=== PATIENT | female | born 1945 | race Caucasian/White ===

== ENCOUNTER 2016-07-20 17:14 | Inpatient (IN) | payer OTHER ==
[2016-07-20] MEDS ORDERED: ALBUTEROL 3 ML DEYVIAL ONE (17:29)
[2016-07-20] MEDS ORDERED: IPRATROPIUM/ALBUTEROL 3 ML DEYVIAL IH ONE (17:33)
[2016-07-20] MEDS ORDERED: ALBUTEROL 3 ML DEYVIAL IH ONE (17:56)
[2016-07-20] MEDS ORDERED: methylPREDNISolone SOD SUCC 125 MG/2 ML VIAL IVP ONE (18:03)
[2016-07-20 18:16] LABS: % IMMATURE GRANULYOCYTES 1.3 % (0.0-1.1); ABSOLUTE IMMATURE GRANULOCYTES 0.22 10^3/uL (0.00-0.10); ADD DIFF? NO; ADD MORPH? NO; ADD SCAN? NO; ATYPICAL LYMPHOCYTE FLAG 10 (0-99); FRAGMENT RBC FLAG 0 (0-99); HEMATOCRIT 49.3 % (38.0-47.0); HEMOGLOBIN 16.7 g/dL (12.6-16.3); LEFT SHIFT FLG 10 (0-99); LIPEMIA HEMOLYSIS FLAG 90 (0-99); MEAN CELL HEMOGLOBIN 28.4 pg (27.9-34.1); MEAN CELL HEMOGLOBIN CONCENTR. 33.9 g/dL (32.4-36.7); MEAN PLATELET VOLUME 8.5 fL (8.7-11.7); PLATELET CLUMPS FLAG 0 (0-99); PLATELET COUNT 456 10^3/uL (150-400); RED BLOOD CELL COUNT 5.87 10^6/uL (4.18-5.33); RED CELL DISTRIBUTION WIDTH 13.2 % (11.5-15.2)
[2016-07-20 18:27] LABS: ANION GAP 14 mEq/L (8-16); CALCIUM 9.1 mg/dL (8.5-10.4); CARBON DIOXIDE 26 mEq/l (22-31); CHLORIDE 96 mEq/L (97-110); CREATININE 0.8 mg/dL (0.6-1.0); GLOMERULAR FILTRATION RATE > 60; GLUCOSE 137 mg/dL (70-100); POTASSIUM 4.1 mEq/L (3.5-5.2); SODIUM 136 mEq/L (134-144)
--- NOTE | 2016-07-20 18:42 | UCPHY ---
H & P Patient Type: Established Chief Complaint Nursing Narrative: 1 month with URI s/s in pt with asthma. is now having cough, congestion and trouble breathing. Time Seen by Provider: 07/20/16 17:33 HPI/ROS: Over the past month this patient reports having URI symptoms with asthma exacerbation. She explains that she was treated by Dr. Schulz, her primary care physician with Zithromax for bronchitis 1 month ago and she has had varying degrees of dyspnea since then. She is currently on 60 mg of prednisone , day 5 in using her albuterol MDI with a spacer at home very regularly. Despite compliance with this regimen she has worsening dyspnea today that prompted her visit. She reports moderate to severe dyspnea. She also has some fatigue. She has a feeling of chest congestion associated with this as well. ROS: No high fevers or chills. No other constitutional symptoms except some fatigue. HEENT: No significant nasal congestion or sore throat. No headache. Pulmonary: No pleuritic pain. Cardiovascular She reports no chest pain except for an ache in her chest wall that she attributes to muscle pain from frequent coughing.. She has chronic lower extremity swelling with no significant worsening recently. No significant leg pain.. No heart palpitations. She does have significant dyspnea on exertion since her symptoms started. She denies any abdominal pain or other GI symptoms. No nausea vomiting. No diaphoresis. 10 point ROS is otherwise negative. Source: Patient Exam Limitations: No limitations - Personal History Current Tetanus Diphtheria and Acellular Pertussis (TDAP): Yes - Medical/Surgical History PMH: Asthma Chronic leg edema on hydrochlorothiazide Hx Asthma: Yes Hx Chronic Respiratory Disease: Yes Hx Diabetes: No Hx Cardiac Disease: No Hx Renal Disease: No Hx Cirrhosis: No Hx Alcoholism: No Hx HIV/AIDS: No Hx Splenectomy or Spleen Trauma: No Other PMH: asthma - Family History Significant Family History: No pertinent family hx - Social History Smoking Status: Never smoked Alcohol Use: Rarely Drug Use: None - Physical Exam Exam: Vital signs are notable for respiratory rate greater than 20 and hypoxia on room air to the mid 80s. General Appearance: Pleasant 71-year-old female with moderate dyspnea. Alert, no distress. Eyes: Pupils equal and round no pallor or injection. ENT, Mouth: Mucous membranes moist. Respiratory: Bilateral pronounced expiratory wheeze with prolonged expiratory phase. Cardiovascular: Regular rate and rhythm. No murmur gallop rub. No JVD or peripheral edema is appreciated. Gastrointestinal: Abdomen is soft and nontender, no masses, bowel sounds normal. Neurological: Alert with no focal deficits. Skin: Warm and dry, no rashes. Musculoskeletal: Neck is supple nontender. Extremities are symmetrical, full range of motion. Psychiatric: Mood and affect are normal. DIFFERENTIAL DIAGNOSIS: After history and physical exam differential diagnosis was considered for persistent asthma exacerbation, CHF, pneumonia, PE, Constitutional: Initial Vital Signs Temperature (C) 36.7 C 07/20/16 17:19 Heart Rate 95 07/20/16 17:19 Respiratory Rate 20 07/20/16 17:19 Blood Pressure 168/83 H 07/20/16 17:19 O2 Sat (%) 88 L 07/20/16 17:19 O2 Delivery Mode Room Air O2 (L/minute) 3 Allergies/Adverse Reactions: No Known Allergies Allergy (Unverified 07/20/16 17:23) Home Medications: Medication Instructions Recorded Albuterol Hfa Anes Only [Proair 2 puffs IH Q4 PRN #1 mdi 10/20/11 Hfa Icu (*)] Albuterol Sulfate [Proventil Hfa] 6.7 gm IH 10/20/11 Albuterol [Proventil Neb] 3 ml IH Q4 PRN #25 deyvial 10/20/11 Dm/P-Ephed/Acetaminoph/Doxylam 296 ml PO 10/20/11 [Nyquil D Cold & Flu Liquid] Fluticasone/Salmeterol [Advair 1 each IH 10/20/11 250-50 Diskus] Triamterene [Dyrenium (RX)] 50 mg PO 10/20/11 Singulair 4 mg (*) 07/20/16 predniSONE 07/20/16 Medical Decision Making - Diagnostics EKG Interpretation: 12 lead EKG performed at 6:46 p.m. reveals sinus rhythm at 86 Intervals: Normal throughout [place]: Normal throughout ST segments: Normal throughout Overall assessment normal EKG Imaging: Chest x-ray: Findings consistent with airway disease, prominent interstitial markings in upper lobes right more than left. Question infiltrate versus fluid overload. ED Course/Re-evaluation: IV, nasal cannula O2-3 L brings her oxygen sat up into the 90s. Had IVs established. She is treated with Solu-Medrol 125 IV. DuoNeb followed by albuterol neb. She has persistent hypoxia to the mid 80s despite nebs. Her workup was expanded to include chest x-ray, EKG and labs. After workup, the patient has significant elevation of white count question effective prednisone versus primary infectious etiology. Given the interstitial markings in her upper lobes cannot rule out early pneumonia. For this reason will cover her with antibiotics. Her rapid flu is negative. Her BNP is normal and clinically she does not have JVD or other findings for acute CHF. Her EKG is normal. Appreciate evidence of acute coronary syndrome. Given her ongoing hypoxia and dyspnea despite 5 days of appropriate treatment for asthma she warrants admission for further treatment. She is positive for SIRS criteria with elevated pulse and respiratory rate, elevated white blood cell count and may have early pneumonia as potential source for sepsis. She has a normal lactate. She does not have septic shock currently. At the time of transfer patient still has ongoing wheezing but her work of breathing is diminished. She appears comfortable but remains hypoxic. On nasal cannula O2 she is satting in the 90s. I spoke with the hospitalist arch cushion skiving machine operator, Dr. Carson at [facility] who accepts the patient for transfer - Data Points Laboratory Results: Laboratory Results 07/20/16 18:09 07/20/16 18:09 07/20/16 07/20/16 07/20/16 19:18 19:00 18:10 WBC RBC Hgb Hct MCV MCH MCHC RDW Plt Count MPV Neut % (Auto) Lymph % (Auto) [place] % (Auto) Eos % (Auto) Baso % (Auto) Nucleat RBC Rel Count Absolute Neuts (auto) Absolute Lymphs (auto) Absolute Monos (auto) Absolute Eos (auto) Absolute Basos (auto) Absolute Nucleated RBC Immature Gran % Immature Gran # VBG Lactic Acid 1.3 mmol/L mmol/L (0.7-2.1) Sodium Potassium Chloride Carbon Dioxide Anion Gap BUN Creatinine Estimated GFR Glucose Calcium NT-Pro-B Natriuret Pep 125 pg/mL pg/mL (0-125) Influenza Typ A,B (DFA) NEGATIVE FOR FLU (NEGATIVE) 07/20/16 07/20/16 18:09 18:09 WBC 16.74 10^3/uL H 10^3/uL (3.80-9.50) RBC 5.87 10^6/uL H 10^6/uL (4.18-5.33) Hgb 16.7 g/dL H g/dL (12.6-16.3) Hct 49.3 % H % (38.0-47.0) MCV 84.0 fL fL (81.5-99.8) MCH 28.4 pg pg (27.9-34.1) MCHC 33.9 g/dL g/dL (32.4-36.7) RDW 13.2 % % (11.5-15.2) Plt Count 456 10^3/uL H 10^3/uL (150-400) MPV 8.5 fL L fL (8.7-11.7) Neut % (Auto) 86.1 % H % (39.3-74.2) Lymph % (Auto) 8.5 % L % (15.0-45.0) [place] % (Auto) 3.8 % L % (4.5-13.0) Eos % (Auto) 0.0 % L % (0.6-7.6) Baso % (Auto) 0.3 % % (0.3-1.7) Nucleat RBC Rel Count 0.0 % % (0.0-0.2) Absolute Neuts (auto) 14.40 10^3/uL H 10^3/uL (1.70-6.50) Absolute Lymphs (auto) 1.43 10^3/uL 10^3/uL (1.00-3.00) Absolute Monos (auto) 0.64 10^3/uL 10^3/uL (0.30-0.80) Absolute Eos (auto) 0.00 10^3/uL L 10^3/uL (0.03-0.40) Absolute Basos (auto) 0.05 10^3/uL 10^3/uL (0.02-0.10) Absolute Nucleated RBC 0.00 10^3/uL 10^3/uL (0-0.01) Immature Gran % 1.3 % H % (0.0-1.1) Immature Gran # 0.22 10^3/uL H 10^3/uL (0.00-0.10) VBG Lactic Acid Sodium 136 mEq/L mEq/L (134-144) Potassium 4.1 mEq/L mEq/L (3.5-5.2) Chloride 96 mEq/L L mEq/L (97-110) Carbon Dioxide 26 mEq/l mEq/l (22-31) Anion Gap 14 mEq/L mEq/L (8-16) BUN 24 mg/dL H mg/dL (7-23) Creatinine 0.8 mg/dL mg/dL (0.6-1.0) Estimated GFR > 60 Glucose 137 mg/dL H mg/dL (70-100) Calcium 9.1 mg/dL mg/dL (8.5-10.4) NT-Pro-B Natriuret Pep Influenza Typ A,B (DFA) Medications Given: Discontinued Medications Albuterol (Proventil Neb) 3 ml IH EDNOW ONE Stop: 07/20/16 17:57 Last Admin: 07/20/16 18:15 Dose: 3 ml Albuterol/Ipratropium (Duoneb) 3 ml IH EDNOW ONE Stop: 07/20/16 17:34 Last Admin: 07/20/16 17:34 Dose: 3 ml Azithromycin (Zithromax) 500 mg PO EDNOW ONE PRN Reason: Protocol Stop: 07/20/16 19:07 Last Admin: 07/20/16 19:25 Dose: 500 mg Ceftriaxone Sodium 1 gm/ (Sodium Chloride) 100 mls @ 200 mls/hr IV EDNOW ONE PRN Reason: Protocol Stop: 07/20/16 19:34 Last Admin: 07/20/16 19:25 Dose: 100 mls Methylprednisolone Sodium Succinate (Solu-Medrol) 125 mg IVP EDNOW ONE Stop: 07/20/16 18:04 Last Admin: 07/20/16 18:16 Dose: 125 mg Departure - Departure Disposition: [facility] Acute Clinical Impression: Hypoxia, Asthma exacerbation, Community acquired pneumonia Dyspnea Qualifiers: Dyspnea type: shortness of breath Qualified Code(s): R06.02 - Shortness of breath Condition: Serious - PQRS PQRS Measurement: 134: Depression screening and followup, PRIME MD-PHQ2 (12 years and older) Over the last 2 weeks, how often have you been bothered by any of the following problems? 1. Feeling down, depressed, or hopeless? 2. Little interest or pleasure in doing things? Patient answered no to both 1 and 2 130: Documentation of medications. Reviewed all patient medications, doses, route and frequency. 226: Do you smoke? [No.] 47: 65 and older: Advanced care planning. Patient designates surrogate decision maker as spouse. 51: 18 years old and older with diagnosis of COPD, spirometry performance. NA 52: 18 years old and older with COPD and symptoms of COPD or FEV1<60% predicted prescribed a B Agonist. NA
--- NOTE | 2016-07-20 18:48 | CPEKG ---
Heart Rate: 86 RR Interval: 698 P-R Interval: 124 QRSD Interval: 100 QT Interval: 376 QTC Interval: 450 P [place]: 55 QRS [place]: 62 T Wave [place]: 11 EKG Severity - NORMAL ECG - EKG Impression: SINUS RHYTHM Electronically Signed By: Jamel Mera 20-Jul-2016 20:58:32
[2016-07-20] MEDS ORDERED: AZITHROMYCIN 250 MG TAB PO ONE (19:06)
--- NOTE | 2016-07-20 22:38 | PDGENHP ---
History and Physical - Chief Complaint Shortness of breath and cough - History of Present Illness this is a 71-year-old female with history of asthma presented to [facility] this afternoon with persistent wheezing, cough, And severe congestion. patient 1st came down with which she describes as "A bug" 4 weeks ago at which time she had some fevers and chills. She was treated with a Z-Alcides as well as a Medrol Dosepak. The patient states that she never report really got better after this 1st course of antibiotics and medication. Patient back to see her primary care provider last week at which time she was started on 60 mg of prednisone per day. She is also been using albuterol and Advair. Patient has continued to wheeze and cough. She states her cough is nonproductive and has trouble getting any mucus up. She denies having any fevers or chills over the past 3 weeks. She does have some chest discomfort when she coughs. History Information - Allergies/Home Medication List Allergies/Adverse Reactions: No Known Allergies Allergy (Unverified 07/20/16 17:23) Home Medications: Fluticasone/Salmeterol [Advair 250-50 Diskus] 1 each IH BID 10/20/11 [Last Taken 07/20/16] Montelukast Sodium [Montelukast Sodium] 10 mg PO DAILY 07/20/16 [Last Taken ] PREDNISONE [PREDNISONE] 60 mg PO DAILY 07/20/16 [Last Taken 07/20/16] Triamterene/Hctz 37.5/25 [Dyazide 37.5/25 (*)] 1 each PO DAILY 07/20/16 [Last Taken 07/20/16] I have personally reviewed and updated: family history, medical history, social history, surgical history Past Medical History: Asthma, chronic lower extremity swelling - Surgical History Reports: cholecystectomy, hysterectomy ( for fibroids) Additional surgical history: bilateral lumpectomy - Family History Positive for: cancer ( mother) - Social History Smoking Status: Never smoked Alcohol Use: Rarely Drug Use: None Review of Systems ROS: 10pt was reviewed & negative except for what was stated in HPI & below Physical Exam Temp Pulse Resp BP Pulse Ox 36.7 C 80 20 142/80 H 95 07/20/16 17:19 07/20/16 20:13 07/20/16 20:13 07/20/16 20:13 07/20/16 20:13 O2 (L/minute) 3 Selected Entries 07/20/16 17:19 O2 Sat (%) 88 L O2 Delivery Room Air Mode Constitutional: no apparent distress, appears nourished, not in pain Eyes: PERRL, anicteric sclera, EOMI Ears, Nose, Mouth, Throat: moist mucous membranes, hearing normal, ears appear normal, no oral mucosal ulcers Cardiovascular: regular rate and rhythym, no murmur, rub, or gallop, No JVD, No edema Respiratory: no respiratory distress, reduced air movement, expiratory wheeze, No inspiratory crackles, No dullness to percussion Gastrointestinal: normoactive bowel sounds, No tenderness, No ascites, No guarding, No rebound Genitourinary: no bladder fullness, no bladder tenderness Skin: warm, normal color, no rashes or abrasions, no fluctuance, no induration, No mottled Musculoskeletal: full muscle strength, no muscle tenderness, normal joint ROM, no joint effusions Neurologic: AAOx3, CN II-XII Intact, No facial droop Psychiatric: interacting appropriately, not anxious, not encephalopathic, thought process linear Lab Data & Imaging Review 07/20/16 18:09 07/20/16 18:09 WBC 16.74 10^3/uL (3.80-9.50) H 07/20/16 18:09 RBC 5.87 10^6/uL (4.18-5.33) H 07/20/16 18:09 Hgb 16.7 g/dL (12.6-16.3) H 07/20/16 18:09 Hct 49.3 % (38.0-47.0) H 07/20/16 18:09 MCV 84.0 fL (81.5-99.8) 07/20/16 18:09 MCH 28.4 pg (27.9-34.1) 07/20/16 18:09 MCHC 33.9 g/dL (32.4-36.7) 07/20/16 18:09 RDW 13.2 % (11.5-15.2) 07/20/16 18:09 Plt Count 456 10^3/uL (150-400) H 07/20/16 18:09 MPV 8.5 fL (8.7-11.7) L 07/20/16 18:09 Neut % (Auto) 86.1 % (39.3-74.2) H 07/20/16 18:09 Lymph % (Auto) 8.5 % (15.0-45.0) L 07/20/16 18:09 [place] % (Auto) 3.8 % (4.5-13.0) L 07/20/16 18:09 Eos % (Auto) 0.0 % (0.6-7.6) L 07/20/16 18:09 Baso % (Auto) 0.3 % (0.3-1.7) 07/20/16 18:09 Nucleat RBC Rel Count 0.0 % (0.0-0.2) 07/20/16 18:09 Absolute Neuts (auto) 14.40 10^3/uL (1.70-6.50) H 07/20/16 18:09 Absolute Lymphs (auto) 1.43 10^3/uL (1.00-3.00) 07/20/16 18:09 Absolute Monos (auto) 0.64 10^3/uL (0.30-0.80) 07/20/16 18:09 Absolute Eos (auto) 0.00 10^3/uL (0.03-0.40) L 07/20/16 18:09 Absolute Basos (auto) 0.05 10^3/uL (0.02-0.10) 07/20/16 18:09 Absolute Nucleated RBC 0.00 10^3/uL (0-0.01) 07/20/16 18:09 Immature Gran % 1.3 % (0.0-1.1) H 07/20/16 18:09 Immature Gran # 0.22 10^3/uL (0.00-0.10) H 07/20/16 18:09 VBG Lactic Acid 1.3 mmol/L (0.7-2.1) 07/20/16 19:00 Sodium 136 mEq/L (134-144) 07/20/16 18:09 Potassium 4.1 mEq/L (3.5-5.2) 07/20/16 18:09 Chloride 96 mEq/L (97-110) L 07/20/16 18:09 Carbon Dioxide 26 mEq/l (22-31) 07/20/16 18:09 Anion Gap 14 mEq/L (8-16) 07/20/16 18:09 BUN 24 mg/dL (7-23) H 07/20/16 18:09 Creatinine 0.8 mg/dL (0.6-1.0) 07/20/16 18:09 Estimated GFR > 60 07/20/16 18:09 Glucose 137 mg/dL (70-100) H 07/20/16 18:09 Calcium 9.1 mg/dL (8.5-10.4) 07/20/16 18:09 NT-Pro-B Natriuret Pep 125 pg/mL (0-125) 07/20/16 18:10 Influenza Typ A,B (DFA) NEGATIVE FOR FLU (NEGATIVE) 07/20/16 19:18 Visualized and Interpreted Chest x-ray results: Yes Chest X-Ray results: other ( hyperinflation) Visualized and Interpreted EKG results: Yes EKG Interpretation: Positive for: normal sinsus rhythm ( rate 86 beats per minute). Negative for: Q waves, ST elevation, ST depression Assessment & Plan Assessment: This 71-year-old female with history of asthma presenting with # acute respiratory failure likely due to asthma exacerbation in the setting of mucous plugging and severe congestion # asthma exacerbation # leukocytosis most likely due to stress demargination in the setting of prednisone use versus acute infection # polycythemia likely secondary in the setting of hypoxemia # mild pre renal azotemia with a chest x-ray that shows possible overload per Radiology read however her BNP is normal plan: - Place in observation - continue IV Solu-Medrol - IV levofloxacin - DuoNeb treatments - trial of Mucinex - will ask RT to provide a flutter valve
[2016-07-20] MEDS ORDERED: ACETAMINOPHEN 325 MG TAB PO PRN (22:44)
[2016-07-20] MEDS ORDERED: ONDANSETRON 4 MG/2 ML VIAL IVP PRN (22:44)
[2016-07-20] MEDS ORDERED: 1/2 NS 1,000 ML IV SCH (23:00)
[2016-07-20] MEDS: ZOLPIDEM TARTRATE 5 MG TAB PO PRN (23:32)
[2016-07-20] MEDS: methylPREDNISolone SOD SUCC 125 MG/2 ML VIAL IVP SCH (23:42)
[2016-07-20] MEDS: guaiFENesin 600 MG TAB.ER PO SCH (23:42)
[2016-07-21] MEDS: IPRATROPIUM/ALBUTEROL 3 ML DEYVIAL IH PRN ×2 (00:01→09:00)
[2016-07-21 05:11] LABS: % IMMATURE GRANULYOCYTES 1.5 % (0.0-1.1); ABSOLUTE IMMATURE GRANULOCYTES 0.28 10^3/uL (0.00-0.10); ADD DIFF? NO; ADD MORPH? NO; ADD SCAN? NO; ATYPICAL LYMPHOCYTE FLAG 10 (0-99); FRAGMENT RBC FLAG 0 (0-99); HEMATOCRIT 45.7 % (38.0-47.0); LEFT SHIFT FLG 10 (0-99); LIPEMIA HEMOLYSIS FLAG 80 (0-99); MEAN CELL HEMOGLOBIN 29.1 pg (27.9-34.1); MEAN CELL HEMOGLOBIN CONCENTR. 32.8 g/dL (32.4-36.7); MEAN CELL VOLUME 88.7 fL (81.5-99.8); MEAN PLATELET VOLUME 8.9 fL (8.7-11.7); PLATELET CLUMPS FLAG 0 (0-99); PLATELET COUNT 397 10^3/uL (150-400); RED BLOOD CELL COUNT 5.15 10^6/uL (4.18-5.33); RED CELL DISTRIBUTION WIDTH 13.6 % (11.5-15.2)
[2016-07-21 05:26] LABS: ANION GAP 9 mEq/L (8-16); CALCIUM 8.4 mg/dL (8.5-10.4); CARBON DIOXIDE 27 mEq/l (22-31); CHLORIDE 102 mEq/L (97-110); CREATININE 0.8 mg/dL (0.6-1.0); GLOMERULAR FILTRATION RATE > 60; GLUCOSE 193 mg/dL (70-100); POTASSIUM 4.8 mEq/L (3.5-5.2); SODIUM 138 mEq/L (134-144)
[2016-07-21] MEDS: methylPREDNISolone SOD SUCC 125 MG/2 ML VIAL IVP SCH ×3 (05:27→17:41)
[2016-07-21] MEDS: guaiFENesin 600 MG TAB.ER PO SCH ×2 (08:00→20:42)
[2016-07-21] MEDS: MONTELUKAST SODIUM 10 MG TAB PO SCH (08:01)
[2016-07-21] MEDS ORDERED: ALBUTEROL 3 ML DEYVIAL IH PRN (09:08)
[2016-07-21] MEDS ORDERED: ACETYLCYSTEINE 10% 30 ML VIAL IH PRN (09:09)
[2016-07-21] MEDS ORDERED: FLUTICASONE/SALMETER 250/50MCG DISKUS IH SCH (09:15)
--- NOTE | 2016-07-21 09:52 | HOSPPROG ---
Hospitalist Progress Note Assessment/Plan: * Asthma exacerbation - still very tight/wheezy -steroids, nebs, abx * Acute respiratory failure - O2 * Leukocytosis -suspect due to steroids * HTN -restart dyazide Subjective: Still SOB. Can't get mucus up. Objective: Vital Signs Temp Pulse Resp BP Pulse Ox 36.4 C 97 18 145/72 H 92 07/21/16 08:00 07/21/16 09:03 07/21/16 09:03 07/21/16 08:00 07/21/16 09:03 Laboratory Results 07/21/16 03:56 07/21/16 03:56 07/20/16 07/21/16 07/22/16 05:59 05:59 05:59 Intake Total 1300 Balance 1300 - Physical Exam Constitutional: no apparent distress, appears nourished, not in pain Cardiovascular: regular rate and rhythym, no murmur, rub, or gallop Respiratory: reduced air movement, expiratory wheeze, respiratory distress, rhonchi Gastrointestinal: normoactive bowel sounds, soft, non-tender abdomen, no palpable masses Skin: no rashes or abrasions, no fluctuance, no induration Neurologic: AAOx3, sensation intact bilaterally Psychiatric: interacting appropriately, not anxious, not encephalopathic, thought process linear ICD10 Worksheet Patient Problems: Problems Problem Status Onset Asthma exacerbation Acute Community acquired pneumonia Acute Dyspnea Acute Hypoxia Acute
[2016-07-21] MEDS: IPRATROPIUM/ALBUTEROL 3 ML DEYVIAL IH SCH ×3 (11:59→20:52)
[2016-07-21] MEDS: ENOXAPARIN 40 MG/0.4 ML SYR SC SCH (20:42)
[2016-07-21] MEDS: FLUTICASONE/SALMETER 250/50MCG DISKUS IH SCH (21:23)
[2016-07-22] MEDS: methylPREDNISolone SOD SUCC 125 MG/2 ML VIAL IVP SCH ×5 (01:03→23:34)
[2016-07-22 05:34] LABS: % IMMATURE GRANULYOCYTES 1.2 % (0.0-1.1); ABSOLUTE IMMATURE GRANULOCYTES 0.28 10^3/uL (0.00-0.10); ADD DIFF? NO; ADD MORPH? NO; ADD SCAN? NO; ATYPICAL LYMPHOCYTE FLAG 40 (0-99); FRAGMENT RBC FLAG 0 (0-99); HEMATOCRIT 43.1 % (38.0-47.0); HEMOGLOBIN 13.9 g/dL (12.6-16.3); LEFT SHIFT FLG 0 (0-99); LIPEMIA HEMOLYSIS FLAG 80 (0-99); MEAN CELL HEMOGLOBIN 28.4 pg (27.9-34.1); MEAN CELL HEMOGLOBIN CONCENTR. 32.3 g/dL (32.4-36.7); MEAN CELL VOLUME 88.1 fL (81.5-99.8); MEAN PLATELET VOLUME 8.8 fL (8.7-11.7); PLATELET CLUMPS FLAG 0 (0-99); PLATELET COUNT 363 10^3/uL (150-400); RED BLOOD CELL COUNT 4.89 10^6/uL (4.18-5.33); RED CELL DISTRIBUTION WIDTH 13.8 % (11.5-15.2)
[2016-07-22] MEDS: IPRATROPIUM/ALBUTEROL 3 ML DEYVIAL IH SCH ×3 (05:44→16:05)
[2016-07-22] MEDS: guaiFENesin 600 MG TAB.ER PO SCH ×2 (09:04→21:05)
[2016-07-22] MEDS: TRIAMTERENE/HCTZ 37.5/25 1 EACH CAP PO SCH (09:04)
[2016-07-22] MEDS: MONTELUKAST SODIUM 10 MG TAB PO SCH (09:05)
[2016-07-22] MEDS: FLUTICASONE/SALMETER 250/50MCG DISKUS IH SCH ×2 (10:11→23:40)
--- NOTE | 2016-07-22 16:07 | HOSPPROG ---
Hospitalist Progress Note Assessment/Plan: * Asthma exacerbation - slow improvement -continue IV steroids - failed outpatient PO steroids -nebs, abx * Acute respiratory failure - O2 * Leukocytosis -suspect due to steroids * HTN -dyazide Subjective: Better but still very SOB Objective: Vital Signs Temp Pulse Resp BP Pulse Ox 36.6 C 77 16 130/73 H 91 L 07/22/16 15:50 07/22/16 15:50 07/22/16 15:50 07/22/16 15:50 07/22/16 15:50 Laboratory Results 07/22/16 04:41 07/21/16 03:56 07/21/16 07/22/16 07/23/16 05:59 05:59 05:59 Intake Total 900 1250 Balance 900 1250 - Physical Exam Constitutional: no apparent distress, appears nourished, not in pain Cardiovascular: regular rate and rhythym, no murmur, rub, or gallop Respiratory: reduced air movement, expiratory wheeze, respiratory distress, No rhonchi Gastrointestinal: normoactive bowel sounds, soft, non-tender abdomen, no palpable masses Skin: no rashes or abrasions, no fluctuance, no induration Neurologic: AAOx3, sensation intact bilaterally Psychiatric: interacting appropriately, not anxious, not encephalopathic, thought process linear ICD10 Worksheet Patient Problems: Problems Problem Status Onset Asthma exacerbation Acute Community acquired pneumonia Acute Dyspnea Acute Hypoxia Acute
[2016-07-22] MEDS: ENOXAPARIN 40 MG/0.4 ML SYR SC SCH (21:05)
[2016-07-22] MEDS: ZOLPIDEM TARTRATE 5 MG TAB PO PRN (23:34)
[2016-07-23] MEDS: IPRATROPIUM/ALBUTEROL 3 ML DEYVIAL IH SCH ×4 (02:59→21:06)
[2016-07-23] MEDS: methylPREDNISolone SOD SUCC 125 MG/2 ML VIAL IVP SCH (05:03)
[2016-07-23 05:05] LABS: ADD DIFF? YES; ADD MORPH? NO; ADD SCAN? NO; ATYPICAL LYMPHOCYTE FLAG 70 (0-99); FRAGMENT RBC FLAG 0 (0-99); HEMATOCRIT 43.1 % (38.0-47.0); HEMOGLOBIN 14.2 g/dL (12.6-16.3); LEFT SHIFT FLG 10 (0-99); LIPEMIA HEMOLYSIS FLAG 80 (0-99); MEAN CELL HEMOGLOBIN 28.4 pg (27.9-34.1); MEAN CELL HEMOGLOBIN CONCENTR. 32.9 g/dL (32.4-36.7); MEAN CELL VOLUME 86.2 fL (81.5-99.8); MEAN PLATELET VOLUME 8.8 fL (8.7-11.7); PLATELET CLUMPS FLAG 0 (0-99); PLATELET COUNT 414 10^3/uL (150-400); RED CELL DISTRIBUTION WIDTH 13.7 % (11.5-15.2)
[2016-07-23 05:45] LABS: PLATELET ESTIMATE ADEQUATE (ADEQ)
[2016-07-23] MEDS: TRIAMTERENE/HCTZ 37.5/25 1 EACH CAP PO SCH (07:58)
[2016-07-23] MEDS: guaiFENesin 600 MG TAB.ER PO SCH ×2 (07:58→20:06)
[2016-07-23] MEDS: MONTELUKAST SODIUM 10 MG TAB PO SCH (07:58)
[2016-07-23] MEDS: FLUTICASONE/SALMETER 250/50MCG DISKUS IH SCH ×2 (08:42→21:11)
--- NOTE | 2016-07-23 16:23 | HOSPPROG ---
Hospitalist Progress Note Assessment/Plan: * Asthma exacerbation - slow improvement -change to PO steroids -nebs, levaquin * Acute respiratory failure - O2 * Leukocytosis -suspect due to steroids * HTN -dyazide Subjective: Better. Actually slept last night after ambien Objective: Vital Signs Temp Pulse Resp BP Pulse Ox 36.3 C 76 18 128/73 H 91 L 07/23/16 15:18 07/23/16 15:18 07/23/16 15:18 07/23/16 15:18 07/23/16 15:18 Laboratory Results 07/23/16 04:16 07/21/16 03:56 07/22/16 07/23/16 07/24/16 05:59 05:59 05:59 Intake Total 1250 2942 Balance 1250 2942 - Physical Exam Constitutional: no apparent distress, appears nourished, not in pain Cardiovascular: regular rate and rhythym, no murmur, rub, or gallop Respiratory: reduced air movement, expiratory wheeze, respiratory distress, rhonchi Gastrointestinal: normoactive bowel sounds, soft, non-tender abdomen, no palpable masses Skin: no rashes or abrasions, no fluctuance, no induration Neurologic: AAOx3, sensation intact bilaterally Psychiatric: interacting appropriately, not anxious, not encephalopathic, thought process linear ICD10 Worksheet Patient Problems: Problems Problem Status Onset Asthma exacerbation Acute Community acquired pneumonia Acute Dyspnea Acute Hypoxia Acute
[2016-07-23] MEDS: predniSONE 20 MG TAB PO SCH (17:37)
[2016-07-23] MEDS: ENOXAPARIN 40 MG/0.4 ML SYR SC SCH (20:06)
[2016-07-24] MEDS: IPRATROPIUM/ALBUTEROL 3 ML DEYVIAL IH SCH ×3 (01:45→10:35)
[2016-07-24 05:04] VITALS: RESP 16
[2016-07-24 07:21] VITALS: BP 125/82; TEMP 97.3
[2016-07-24] MEDS: predniSONE 20 MG TAB PO SCH (07:43)
[2016-07-24] MEDS: guaiFENesin 600 MG TAB.ER PO SCH (07:44)
[2016-07-24] MEDS: TRIAMTERENE/HCTZ 37.5/25 1 EACH CAP PO SCH (07:44)
[2016-07-24] MEDS: MONTELUKAST SODIUM 10 MG TAB PO SCH (07:44)
[2016-07-24 08:48] VITALS: O2SAT 91
[2016-07-24] MEDS ORDERED: predniSONE 20 MG TAB PO ONE (09:08)
[2016-07-24] MEDS: FLUTICASONE/SALMETER 250/50MCG DISKUS IH SCH (10:35)
[2016-07-24 10:43] VITALS: PULSE 71
--- NOTE | 2016-07-24 19:57 | GDS ---
DISCHARGE DIAGNOSES: 1. Asthma exacerbation due to a viral bronchitis. 2. Acute respiratory failure. 3. Leukocytosis due to steroids. 4. Hypertension. HISTORY: The patient is a 71-year-old female, who has a longstanding history of asthma, which she h as been able to control well with diligent outpatient care. She, unfortunately, however, got a terr ible virus that she has been struggling with for weeks. She has been taking oral steroids at 60 mg a day, as well as nebulizers at home, and just failed to improve. She presented to the hospital dot y tight, severe wheezing, and acute respiratory failure with hypoxemia. HOSPITAL COURSE: She was admitted to the hospital, administered IV steroids, and it took multiple d ays to get her to open up. She is finally improved on the day of discharge, and ready to switch lisette k to oral steroids. I do suspect a viral infection; however, she is being treated with antibiotics, in the form of Levaquin. We have been able to successfully wean her off oxygen at the time of disc harge. Given the severe nature of this asthma exacerbation, she did request a referral to [facility] Pul[facility] Medicine, and she was given contact information for Dr. Yonathan Cornell. I do recommend o utpatient PFTs. She also has had some nocturnal desaturations, and outpatient sleep study could be considered. DISCHARGE MEDICATIONS: Please see computer record for full detailed list. New medications: 1. Prednisone 60 mg p.o. daily, tapering by 20 mg every 3 days until off. 2. Levaquin 750 mg p.o. daily for 3 more days. 3. Duo-Neb's every 6 hours. 4. Mucinex 1200 mg p.o. twice daily. 5. She will continue her Advair and Singulair as she was prior to admission. ADDITIONAL DISCHARGE INSTRUCTIONS: 1. She requested limited duty work obligations for the next week. She drives all the way to [facility], and I think it would be best if she worked from home until she has a full recovery. 2. Follow up with Pulmonary Medicine and primary care. Greater 30 minutes' time was spent on arranging this discharge. Patient was seen and examined by me on the day of discharge. /[id number]/MODL
== END 2016-07-24 11:05 | disposition home or self-care (01) | DRG 202 ==
LOC: CED 17:14 → CEDHOLD 19:36 → F2W 21:16
PROVIDERS: ADMIT Internal Medicine; ATTEND Internal Medicine
DX: J45.901 Unspecified asthma with (acute) exacerbation (principal); J96.01 Acute respiratory failure with hypoxia; J20.8 Acute bronchitis due to other specified organisms; D72.829 Elevated white blood cell count, unspecified; I10 Essential (primary) hypertension
CPT/HCPCS: 71020-PO; 80048-PO; 83605-PO; 83880-PO; 85025-PO; 87400-PO; 96361-PO; 96365-PO; 96375-PO; G0463-PO; J0696; J1650

== ENCOUNTER → 2016-11-10 | Outpatient (CLI) | payer OTHER | LOC: CIMAGING 08:20 | PROVIDERS: ATTEND Internal Medicine Critical Care Medicine | DX: J40 Bronchitis, not specified as acute or chronic (principal); R09.02 Hypoxemia; J45.909 Unspecified asthma, uncomplicated | CPT/HCPCS: 71250-PO ==

== ENCOUNTER 2016-12-01 13:21 | Day surgery (SDC) | payer OTHER ==
[2016-12-01] MEDS ORDERED: EPINEPHrine 1 MG/10 ML SYR IVP ONE (13:23)
[2016-12-01] MEDS ORDERED: LIDOCAINE 2% JELLY 5 ML TUBE ONE (13:24)
[2016-12-01] MEDS ORDERED: ALBUTEROL 3 ML DEYVIAL ONE (13:24)
[2016-12-01] MEDS ORDERED: LIDOCAINE 1% *Not for Epidural 20 ML MDV ONE (13:31)
[2016-12-01] MEDS ORDERED: LIDOCAINE 1% 2 ML INJ ID PRN (13:47)
[2016-12-01 13:55] VITALS: PULSE 95; TEMP 97.9
[2016-12-01] MEDS ORDERED: NS 500 ML IV SCH (14:00)
[2016-12-01] MEDS ORDERED: LIDO/EPI 1% **Not for Epidural 20 ML MDV ONE (14:08)
[2016-12-01] MEDS ORDERED: MIDAZOLAM 2 MG/2 ML VIAL ONE (14:09)
[2016-12-01] MEDS ORDERED: fentaNYL 100 MCG/2 ML INJ ONE (14:10)
--- NOTE | 2016-12-01 14:44 | PDHPUP ---
History & Physical Update H&P update statement: This history and physical update is based on an assessment of the patient which was completed after admission or registration (within 24 hours), but prior to the surgery/procedure.
[2016-12-01 17:15] VITALS: BP 106/63; RESP 13; O2SAT 91
--- NOTE | 2016-12-01 19:20 | GPN ---
[f rep st] PROCEDURE NOTE DATE OF PROCEDURE: 12/01/2016 PROCEDURE: Bronchoalveolar lavage. INDICATION: Bronchiectasis. CONSENT: Informed consent was obtained from the patient prior to the administration of anesthesia. The risks and benefits of both the procedure as well as conscious sedation were explained in detail . The patient agreed to proceed. SEDATION: Conscious sedation was achieved using a total of 3 mg IV Versed, 75 mcg of IV fentanyl, a nd topical lidocaine. The patient tolerated these medications without difficulty. DESCRIPTION OF PROCEDURE: After an appropriate time out, the bronchoscope was easily passed through the mouth and passed normal-appearing vocal cords. There were mild and small white mucus plugs see n throughout the airway particularly in the right mainstem but no major mucus plugs or mucosal eryth kecia or abnormalities. The main subcarina was sharp. Attention was drawn to the right middle lobe where bronchiectasis was identified easily on a CT scan . A bronchoalveolar lavage was performed in this region. Three aliquots of 40 cc of normal saline were instilled, but only about 20 cc of clear fluid was returned. Additional suctioning yielded add itional fluids, but again, no major mucus plugging was found. There was no blood, and the patient t olerated this well. During the recovery phase of the procedure, however, the patient's oxygen satur ation dipped to without 83% on room air. She is known to have nocturnal hypoxemia, has a concentrat or already, and was discharged with oxygen at 2 L/min and will likely end up with a sleep study in t he near future. Otherwise, there were no complications. No blood loss. /[id number]/MODL
== END 2016-12-01 17:16 | disposition home or self-care (01) ==
LOC: FSGY 13:21
PROVIDERS: ATTEND Internal Medicine Critical Care Medicine
PROC: 0B9D8ZX Drainage of Right Middle Lung Lobe, Via Natural or Artificial Opening Endoscopic, Diagnostic (ICD-10-PCS; principal; 2016-12-01 14:30)
DX: J47.9 Bronchiectasis, uncomplicated (principal)
CPT/HCPCS: J2250; J3010

== ENCOUNTER 2017-02-03 18:20 | Observation (INO) | payer OTHER ==
--- NOTE | 2017-02-03 18:45 | EDPHY ---
HPI/HX/ROS/PE/MDM Narrative: CHIEF COMPLAINT: Blisters on lips HISTORY OF PRESENT ILLNESS: The patient is a 71 y/o female with long history of asthma, recently diagnosed bronchiectasis, who also has a recent diagnosis of the nocardia pulmonary infection. Patient was placed on high-dose Bactrim 2 weeks ago to treat the no cardia. She was seen by infectious disease 3 days ago for the a flare of her respiratory complaints the, and was once again started on nebs as well as prednisone. She presents today reporting that she has had blistering on her lips for the last 2 days as well as dry lips. She has continued to have some shortness of breath. She also notes a slight rash on her lower extremities and flushing on her face. Patient denies any conjunctivitis, conjunctival discharge, irritation in her eyes, throat discomfort, difficulty swallowing, abdominal upset, or vaginal irritation. She denies a fever. REVIEW OF SYSTEMS: Aside from elements discussed in the HPI, a comprehensive 10-point review of systems was reviewed and is negative. PAST MEDICAL HISTORY: Asthma, on oxygen for 2.5 months, bronchoscopy with biopsy on 12/02/16, recent diagnosis of Nocardia pulmonary infection. SOCIAL HISTORY: at bedside, lives in [place], non-smoker VITAL SIGNS: Reviewed by me GENERAL: Well-developed, well-nourished, very pleasant, on oxygen, reports some difficulty breathing. HEENT: Atraumatic. Eyes: No icterus, no injection, no swelling of the eyelids. Mouth: blistering of upper lip, mucous membranes normal. No swelling. No erythema. No blisters on posterior pharynx. Neck: supple with no adenopathy. LUNGS: Wheezes throughout. CARDIAC: Regular rate and rhythm, no rubs, murmurs or gallops. ABDOMEN: Soft, nontender, nondistended, bowel sounds normal. BACK: No CVA tenderness. EXTREMITIES: Erythroderma on lower extremities. No trauma. No edema. Range of motion is normal throughout. NEURO: Alert and oriented, grossly nonfocal. SKIN: Warm and dry. PSYCHIATRIC: Normal mentation, no agitation. Portions of this note were transcribed by a certified medical assistant. I personally performed a history, physical exam, medical decision making, and confirmed accuracy of information the transcribed note. ED Course: The patient is a 71 y/o female who presents with blistering of her upper lip. She was recently diagnosed with nocardia and was subsequently prescribed a high dose Bactrim. Plan on DuoNeb, 60mg po Prednisone, 25mg po Benadryl, and consultation with infectious disease. 2036: Consulted with infectious disease, Dr. Franck Philippe. He recommends admission to the hospital for close observation to ensure the patient does not develop full-blown Mirza-Trey syndrome. Currently patient is immuno suppressed on 40 mg of prednisone. She does have wheezes which I suspect are most likely related to her asthma but may have an allergic component. Dr. Philippe recommends a drug holiday and will evaluate the patient tomorrow with respect to antibiotic for the Nocardia. 2039: Reassessed patient and discussed Dr. Philippe's recommendations. She is comfortable with the admission plan. 2044: Dr. Chamorro accepts admission of this patient. MDM: Differential diagnoses for the patient's symptom complex was considered including but not limited to Ayan Trey syndrome, drug reaction, herpes lesions, acute exacerbation of asthma. - Data Points Medications Given: Albuterol/Ipratropium (Duoneb) 3 ml IH QID BIRGIT Stop: 08/02/17 20:59 Last Admin: 02/03/17 23:48 Dose: Not Given Discontinued Medications Albuterol/Ipratropium (Duoneb) 3 ml IH EDNOW ONE Stop: 02/03/17 19:05 Last Admin: 02/03/17 19:25 Dose: 3 ml Diphenhydramine HCl (Benadryl) 25 mg PO EDNOW ONE Stop: 02/03/17 19:05 Last Admin: 02/03/17 19:25 Dose: 25 mg Sodium Chloride (Ns) 500 mls @ 1,500 mls/hr IV ONCE ONE Stop: 02/03/17 23:36 Last Admin: 02/04/17 00:06 Dose: 500 mls Prednisone (Prednisone) 60 mg PO EDNOW ONE Stop: 02/03/17 19:05 Last Admin: 02/03/17 19:25 Dose: 60 mg General Time Seen by Provider: 02/03/17 18:43 Initial Vital Signs: Initial Vital Signs Temperature (C) 36.5 C 02/03/17 18:25 Heart Rate 95 02/03/17 18:25 Respiratory Rate 18 02/03/17 18:25 Blood Pressure 159/84 H 02/03/17 18:25 O2 Sat (%) 97 02/03/17 18:25 O2 Delivery Mode Nasal Cannula O2 (L/minute) 3 Allergies/Adverse Reactions: sulfamethoxazole [From Bactrim] Allergy (Severe, Verified 02/03/17 21:17) Ayan Trey Syndrome trimethoprim [From Bactrim] Allergy (Severe, Verified 02/03/17 21:17) Ayan Trey Syndrome Home Medications: Medication Instructions Recorded Albuterol Sulfate [Proair Hfa] 2 puffs IH Q4-6PRN PRN 02/03/17 Fluticasone/Salmeter 250/50Mcg 1 puffs IH BID 02/03/17 [Advair 250/50 (*)] Montelukast Sodium [Singulair 10 10 mg PO DAILY@1800 02/03/17 mg (*)] Nystatin Susp [Mycostatin Oral 4 ml PO QID 02/03/17 Liquid] predniSONE [Prednisone] 40 mg PO DAILY 02/03/17 Departure - Departure Disposition: [facility] Inpatient Acute Clinical Impression: Rule out Mirza-Trey's Syndrome Allergic reaction caused by a drug Qualifiers: Encounter type: initial encounter Qualified Code(s): T78.40XA - Allergy, unspecified, initial encounter Condition: Fair Report Scribed for: Millie Escobar Report Scribed by: Shawnee Padron Date of Report: 02/03/17 Time of Report: 19:01 Physician Review and Approval Statement: Portions of this note were transcribed by a certified medical assistant. I, Dr Millie Escobar, personally performed a history, physical exam, medical decision making, and confirmed the accuracy of the information in the transcribed note.
[2017-02-03] MEDS ORDERED: IPRATROPIUM/ALBUTEROL 3 ML DEYVIAL IH ONE (19:04)
[2017-02-03] MEDS ORDERED: predniSONE 20 MG TAB PO ONE (19:04)
[2017-02-03] MEDS ORDERED: diphenhydrAMINE 25 MG CAP PO ONE (19:04)
[2017-02-03] MEDS ORDERED: ALBUTEROL 3 ML DEYVIAL IH PRN (20:47)
[2017-02-03] MEDS ORDERED: oxyCODONE IR 5 MG TAB PO PRN (20:47)
[2017-02-03] MEDS ORDERED: ACETAMINOPHEN 325 MG TAB PO PRN (20:47)
[2017-02-03] MEDS ORDERED: ONDANSETRON DISINTEGRATING 4 MG TAB PO PRN (20:47)
[2017-02-03] MEDS ORDERED: ONDANSETRON 4 MG/2 ML VIAL IVP PRN (20:47)
--- NOTE | 2017-02-03 21:49 | GHP ---
[f rep st] HISTORY AND PHYSICAL DATE OF ADMISSION: 02/03/2017 CHIEF COMPLAINT: New rash. HISTORY OF PRESENT ILLNESS: This is a 71-year-old female with a recent diagnosis of Nocardia who pre sents with a new rash. This started back this summer when she had worsening respiratory symptoms. S he does have a history of asthma. She underwent a bronchoscopy by Dr. Cornell. This ended up growing out Nocardia. She has been followed by Dr. Philippe as an outpatient who has her on Bactrim treatment. S he started Bactrim about 2 weeks ago. Today she started developing some rash around her lips; this i s not associated with any oral ulcers. It is not especially painful. She has also been shaking. No tably, she was started on prednisone about 2 weeks ago for worsening asthma. She also notes a new ra sh on her legs. PAST MEDICAL/SURGICAL HISTORY: 1. Asthma. 2. Bronchiectasis. 3. Nocardia. 4. Cholecystectomy. 5. Hysterectomy. MEDICATIONS: Please see medication reconciliation. ALLERGIES: No known drug allergies. FAMILY HISTORY: Diabetes. SOCIAL HISTORY: She has not had a drink for 2 months. She has never smoked. REVIEW OF SYSTEMS: A 10-point review of systems is conducted and is negative except per HPI. PHYSICAL EXAMINATION: VITAL SIGNS: Blood pressure 159/84, heart rate 95, respiration rate 18, satur ating 95% on 3 L. Temperature is 36.5. GENERAL: This patient is pleasant. She appears mildly anxio us, otherwise in no acute distress. HEENT: Shows her to have dentures in place. When she removed t hose, I see no oral lesions. CARDIOVASCULAR: Regular rate and rhythm. No murmurs, rubs, or gallops. PULMONARY: Her lungs are diffusely wheezy. She is in mild respiratory distress. ABDOMEN: Soft, nontender, nondistended. SKIN: Shows her to have a mild follicular-type rash on her legs. She does have mild erythema surrounding her lips with a slight bit of peeling. NEUROLOGIC: Shows her to be al ert and oriented x3. She is moving all extremities. PSYCHIATRIC: Shows to be mildly anxious. LABORATORY DATA: These have been ordered but are pending right now. DATA: 1. I discussed this with Dr. Escobar. Will admit to med/surg. 2. I reviewed her chart including her last admission where she was treated for asthma, discharged wi th followup with Dr. Cornell. IMPRESSION AND PLAN: A 71-year-old female on Bactrim presents with likely allergy to Bactrim. 1. Perioral rash and lower extremity rash: Suspect that this is due to Bactrim. The perioral will ulcerate and reveal itself as herpes. For now, we will hold Bactrim. We will continue her steroids. Infectious Disease will see her tomorrow and discuss ongoing treatments for her Nocardia. 2. Nocardia infection: Hold Bactrim as above. 3. Chronic respiratory failure: Will continue her steroids. She is wheezing on exam. We will sche dule nebulizers. 4. Possible recent diagnosis of oral Irina infection: I do not see any evidence of this now. We will continue nystatin but can likely stop that soon. 5. Code status: Full. /[id number]/MODL
[2017-02-03 21:53] LABS: % IMMATURE GRANULYOCYTES 1.3 % (0.0-1.1); ABSOLUTE IMMATURE GRANULOCYTES 0.24 10^3/uL (0.00-0.10); ADD DIFF? NO; ADD MORPH? NO; ADD SCAN? NO; ATYPICAL LYMPHOCYTE FLAG 0 (0-99); FRAGMENT RBC FLAG 0 (0-99); HEMATOCRIT 39.1 % (38.0-47.0); HEMOGLOBIN 12.7 g/dL (12.6-16.3); LEFT SHIFT FLG 0 (0-99); LIPEMIA HEMOLYSIS FLAG 80 (0-99); MEAN CELL HEMOGLOBIN 27.3 pg (27.9-34.1); MEAN CELL HEMOGLOBIN CONCENTR. 32.5 g/dL (32.4-36.7); MEAN CELL VOLUME 84.1 fL (81.5-99.8); MEAN PLATELET VOLUME 9.1 fL (8.7-11.7); PLATELET CLUMPS FLAG 10 (0-99); PLATELET COUNT 410 10^3/uL (150-400); RED BLOOD CELL COUNT 4.65 10^6/uL (4.18-5.33)
[2017-02-03 22:08] LABS: ANION GAP 15 mEq/L (8-16); CALCIUM 9.7 mg/dL (8.5-10.4); CARBON DIOXIDE 26 mEq/l (22-31); CHLORIDE 94 mEq/L (97-110); CREATININE 0.8 mg/dL (0.6-1.0); GLOMERULAR FILTRATION RATE > 60; GLUCOSE 155 mg/dL (70-100); POTASSIUM 5.4 mEq/L (3.5-5.2); SODIUM 135 mEq/L (134-144)
[2017-02-03] MEDS ORDERED: NS 500 ML IV ONE (23:17)
[2017-02-03] MEDS: IPRATROPIUM/ALBUTEROL 3 ML DEYVIAL IH SCH (23:48)
[2017-02-04 04:56] LABS: % IMMATURE GRANULYOCYTES 1.4 % (0.0-1.1); ABSOLUTE IMMATURE GRANULOCYTES 0.22 10^3/uL (0.00-0.10); ADD DIFF? NO; ADD MORPH? NO; ADD SCAN? NO; ATYPICAL LYMPHOCYTE FLAG 0 (0-99); FRAGMENT RBC FLAG 0 (0-99); HEMATOCRIT 35.3 % (38.0-47.0); HEMOGLOBIN 11.2 g/dL (12.6-16.3); LEFT SHIFT FLG 10 (0-99); LIPEMIA HEMOLYSIS FLAG 80 (0-99); MEAN CELL HEMOGLOBIN 26.9 pg (27.9-34.1); MEAN CELL HEMOGLOBIN CONCENTR. 31.7 g/dL (32.4-36.7); MEAN CELL VOLUME 84.7 fL (81.5-99.8); MEAN PLATELET VOLUME 9.1 fL (8.7-11.7); PLATELET CLUMPS FLAG 0 (0-99); PLATELET COUNT 368 10^3/uL (150-400); RED BLOOD CELL COUNT 4.17 10^6/uL (4.18-5.33); RED CELL DISTRIBUTION WIDTH 16.1 % (11.5-15.2)
[2017-02-04 05:15] LABS: ANION GAP 12 mEq/L (8-16); CALCIUM 9.2 mg/dL (8.5-10.4); CARBON DIOXIDE 27 mEq/l (22-31); CHLORIDE 99 mEq/L (97-110); CREATININE 0.7 mg/dL (0.6-1.0); GLOMERULAR FILTRATION RATE > 60; GLUCOSE 167 mg/dL (70-100); POTASSIUM 5.3 mEq/L (3.5-5.2); SODIUM 138 mEq/L (134-144)
[2017-02-04] MEDS: IPRATROPIUM/ALBUTEROL 3 ML DEYVIAL IH SCH ×3 (05:27→15:35)
[2017-02-04] MEDS ORDERED: NYSTATIN SUSP 500000 UNIT/5 ML UDCUP PO SCH (06:00)
[2017-02-04] MEDS: NYSTATIN SUSP 500000 UNIT/5 ML UDCUP PO SCH ×3 (06:01→16:36)
[2017-02-04] MEDS ORDERED: AQUAPHOR OINTMENT 3.5 OZ JAR TP SCH (09:00)
[2017-02-04] MEDS ORDERED: predniSONE 20 MG TAB PO SCH (09:00)
[2017-02-04] MEDS ORDERED: FLUTICASONE/SALMETER 250/50MCG DISKUS IH SCH (09:00)
--- NOTE | 2017-02-04 12:29 | HOSPPROG ---
Hospitalist Progress Note Assessment/Plan: 71 yo F with recent dx of nocardia started on bactrim about 2 weeks ago admitted with rash # perioral and lower extremity rash: in the setting of being recently started on bactrim and felt to be likely a drug response, no mucosal involvement and has improved significantly overnight. Bactrim being held, ID consult pending to determine if it should be resumed or switched to another abx # nocardia infection: as above, fairly recently diagnosed and has been treated up until now with bactrim, ID to see. Personally reviewed most recent chest CT showing bronchitis, cystic bronchiectasis # RAD with acute exacerbation and chronic hypoxic respiratory failure: was started on steroids as an OP and with significant wheezing on presentation that was better this am, continue steroids, BDs. Has been on O2 for the last several months, stable on her home o2 # ? candidal infection: has been on nystatin, seems to have resolved # leukocytosis: persistent in the setting of steroid use, monitoring # observation status--pending ID evaluation she will likely be able to dc home today Patient new to my care. Old records reviewed and summarized as above. Subjective: no significant overnight events, patient feeling much better, lesions on upper lip nearly gone as is the rash on her legs Objective: Vital Signs Temp Pulse Resp BP Pulse Ox 36.5 C 75 92 H 130/66 H 92 02/04/17 11:47 02/04/17 11:47 02/04/17 07:37 02/04/17 11:47 02/04/17 11:47 Laboratory Results 02/04/17 04:20 02/04/17 04:20 02/03/17 02/04/17 02/05/17 05:59 05:59 05:59 Intake Total 700 Balance 700 awake alert nad anicteric crusted sores upper lip, op clear rrr no mrg cta b soft nt nd no cce warm dry scattered petechial lesion on BLE oriented appropriate ICD10 Worksheet Patient Problems: Problems Problem Status Onset Dyspnea Acute Hypoxia Acute Asthma exacerbation Acute Community acquired pneumonia Acute Allergic reaction caused by a drug Acute
[2017-02-04 15:48] VITALS: BP 135/74; PULSE 89; RESP 18; TEMP 98.2; O2SAT 93
--- NOTE | 2017-02-04 16:30 | PCMIDPN ---
Assessment/Plan: Assessment/Plan: 1. Lesions on upper lip with possible rash - no rash today. significant improvmentin lesons on uppper lip - last dose of bactreim was yestereday morning. - has abeen on steroids since 02/01/17. -swab lesoins for HSV pCR -observe off bacterim for now - bactrim related? vs HSV 2. nocardia pneumonia- -unclear if bacttrim reaction, possible SJS vs HSV -hold bactreim -discussed possible bactrim desensitzation vs using alternative antibiotics going forward for treatment. -will wait to restart for now. - care coordinated with Dr. Cornell, i requested he evaluate paitent and help with inhaler/neb recommendation. - care cooridnated with hospitalist team. Subjective: afebrile. feels better today. redeness over lower extemties has resolved. the lesons on the upper lip have apparently shruken down significantly. less pain. no blisters in the mouth no other oral ulcers in the mouth. breahting is better. no diarrhea. Objective: Vital Signs Temp Pulse Resp BP Pulse Ox 36.8 C 89 18 135/74 H 93 02/04/17 15:46 02/04/17 15:46 02/04/17 15:46 02/04/17 15:46 02/04/17 15:46 Laboratory Results 02/04/17 04:20 02/04/17 04:20 02/03/17 02/04/17 02/05/17 05:59 05:59 05:59 Intake Total 700 500 Balance 700 500 - Physical Exam General Appearance: alert, no apparent distress EENT: other (upper lip with several lesions, some scabbing noted, some very small blister or vesicular lesions noted. inside mouth, marked improvment in patchy erythema that was noted involving buccal mucosa and uvula. no thrush. no other oral ulcers noted. lower lip not involved.) Respiratory: coarse breath sounds, other (no further wheeezing noted.) Cardiac/Chest: regular rate, rhythm Abdomen: normal bowel sounds, non-tender, soft, No distended Skin: other (no real rash noted today.) ICD10 Worksheet Patient Problems: Problems Problem Status Onset Allergic reaction caused by a drug Acute Asthma exacerbation Acute Community acquired pneumonia Acute Dyspnea Acute Hypoxia Acute
--- NOTE | 2017-02-04 17:18 | PDDCSUM ---
Discharge Summary Discharge Summary: Dates of service 02/03-02/04/17 Discharge dx: # rash # nocardia infection # RAD with acute exacerbation # leukocytosis Consultations: pulmonary/ID Procedures performed: none Hospital course by problem: 71 yo F with recent dx of nocardia started on bactrim about 2 weeks ago admitted with rash # perioral and lower extremity rash: in the setting of being recently started on bactrim and possible drug reaction versus perioral HSV. Evaluated by ID, rash sent for HSV PCR, and plan to continue to hold bactrim for the time being. Had significant improvement since admission. # nocardia infection: as above, fairly recently diagnosed and has been treated with bactrim for the last 2 weeks. Was seen by both pulm and ID who agree that for now will hold bactrim # RAD with acute exacerbation and chronic hypoxic respiratory failure: was started on steroids as an OP and with significant wheezing on presentation that was better this am, continue steroids with a 2 week taper, BDs--pulm recommends increase of advair from 250-500mg and was dc'ed home on that. Has been on O2 for the last several months, stable on her home o2 # ? candidal infection: has been on nystatin, seems to have resolved # leukocytosis: persistent in the setting of steroid use, monitoring DC home f/u with ID/pulmonary > 35 min spent in dc of patient more than half in coordination of care
[2017-02-04] MEDS ORDERED: MONTELUKAST SODIUM 10 MG TAB PO SCH (18:00)
[2017-02-06 21:38] LABS: SPECIMEN SOURCE LIP
== END 2017-02-04 18:02 | disposition home or self-care (01) ==
LOC: F1N 22:15
PROVIDERS: ADMIT Student in an Organized Health Care Education/Training Program; ATTEND Internal Medicine
DX: L27.1 Localized skin eruption due to drugs and medicaments taken internally (principal); T37.0X5A Adverse effect of sulfonamides, initial encounter; A43.0 Pulmonary nocardiosis; J45.909 Unspecified asthma, uncomplicated; J96.11 Chronic respiratory failure with hypoxia; D72.829 Elevated white blood cell count, unspecified
CPT/HCPCS: G0378 ×2; 87529-90

== ENCOUNTER → 2017-04-26 | Outpatient (CLI) | payer OTHER | LOC: CIMAGING 14:20 | PROVIDERS: ATTEND Internal Medicine Infectious Disease | DX: A43.0 Pulmonary nocardiosis (principal); R06.00 Dyspnea, unspecified | CPT/HCPCS: 71250-PO ==